=== PATIENT | female | born 1955 | race Hispanic/Latino ===

== ENCOUNTER 2018-08-17 08:44 | Outpatient (CLI) | payer MEDICAID | END 2018-08-17 08:45 | disposition home or self-care (01) | LOC: C.VASC 08:44 | DX: M79.604 Pain in right leg (principal) ==

== ENCOUNTER 2018-08-22 08:34 | Outpatient (CLI) | payer MEDICAID | END 2018-08-22 08:35 | disposition home or self-care (01) | LOC: C.VASC 08:34 | DX: M79.604 Pain in right leg (principal) ==